=== PATIENT | male | born 1975 | race Hispanic/Latino ===

== ENCOUNTER 2019-03-22 15:01 | Emergency (ER) | payer OTHER ==
[2019-03-22] MEDS ORDERED: LIDOCAINE HCL 1% 20 ML VIAL ONE (16:14)
[2019-03-22] MEDS ORDERED: OCTYL 2-CYANOACRYLATE 1 EACH TP ONE (16:19)
[2019-03-22] MEDS ORDERED: CEFAZOLIN SODIUM 1 GM VIAL ONE (17:01)
[2019-03-22] MEDS ORDERED: ACETAMINOPHEN EXTRA STRENGTH 500 MG TABLET ONE (17:19)
== END 2019-03-22 17:31 | disposition home or self-care (01) ==
LOC: EDH 15:01
DX: S61.211A Laceration without foreign body of left index finger without damage to nail, initial encounter (principal); W23.0XXA Caught, crushed, jammed, or pinched between moving objects, initial encounter; Y93.89 Activity, other specified; Y92.89 Other specified places as the place of occurrence of the external cause; Y99.8 Other external cause status
CPT/HCPCS: 12001; 73140; 96372; 99284; J0690